=== PATIENT | female | born 1995 | race Caucasian/White ===

== ENCOUNTER 2025-03-02 17:02 | Outpatient (CLI) | payer BC, SELFPAY ==
--- NOTE | 2025-03-02 | XR_ITS ---
FINAL REPORT CLINICAL HISTORY: pain COMPARISON: None FINDINGS: RIGHT SHOULDER Three views demonstrate no acute fracture or dislocation. The visualized joint spaces are normally aligned. The soft tissues are unremarkable. IMPRESSION: No acute bony abnormality. Reviewed, Interpreted and Dictated by Dale Cox MD Transcribed by Ani Traylor Authenticated and [facility]
--- NOTE | 2025-03-02 | XR_ITS ---
FINAL REPORT CLINICAL HISTORY: pain COMPARISON: None FINDINGS: Two views of the thoracic spine were obtained. There is no acute fracture. There is no malalignment. The vertebrae are normal in height. The disc spaces are preserved. IMPRESSION: No acute process. Reviewed, Interpreted and Dictated by Dale Cox MD Transcribed by Ani Traylor Authenticated and [facility]
--- OUTSIDE RECORDS SUMMARY | 2025-03-02 17:15 | XMS_ITS | Clinical Summary ---
Author Organization [facility] Address [address] [place] [address] Care Team Providers Care Science Interpreter Name Role Phone Jennifer Lucero MD Primary Care Provider [phone] Allergies No known active allergies Medications FLUoxetine (PROzac) 20 MG capsule Take by mouth Daily. 11/30/2020 Active busPIRone (BUSPAR) 10 MG tablet Take 10 mg by mouth Every 8 (Eight) Hours As Needed. for anxiety 11/30/2020 Active Vit-Fe Fumarate-FA ( vitamin 27-0.8) 27-0.8 MG tablet tablet Take 1 tablet by mouth Daily. Active Active Problems Problem Noted Date Diagnosed Date Chlamydia infection during 01/21/2021 Assessment & Plan (01/21/2021 7:24 PM EDT): Test of cure 01/20 01/21/2021 care, subsequent , second trim ely 01/21/2021 8 weeks gestation of 12/23/2020 Tobacco use during , antepartum 021 Family History Medical History Relation Name Comments Hypertension Father Bipolar disorder Mother Ovarian cancer Mother Diabetes Paternal Aunt Diabetes Paternal Uncle Relation Name Status Comments Father Mother Paternal Aunt Paternal Uncle Social History Tobacco Use Types Packs/Day Years Used Date Smoking Tobacco: Every Day Cigarettes Smokeless Tobacco: Never Alcohol Use Standard Drinks/Week Comments Never 0 (1 standard drink = 0.6 oz pur e alcohol) Abuse Screen Answer Date Recorded Unsafe at Home or Work/School Not on file Feels Threatened by Someone? Not on file 03/2023 Does Anyone Keep You from Co ntacting Others or Doint Things Outside the Home? Not on file 04/22/2023 Physical Sign of Abuse Present Not on file 1 Housing Stability Answer Date Recorded Current Living Arrangements Not on file 03/2023 Potentially Unsafe Housing Conditions Not on kelli e 04/22/2023 Family and Community Support Answer Rio e Recorded Help with Day-to-Day Activities Not on file 04/22/2023 Lonely or Isolated Not on file 04/22/2023 Employment Answer Date Recorded Do you want help finding or keeping work or a manjinder b? Not on file 04/22/2023 Disabilities Answer Date Recorded Concentrating, Remembering, or Making Decisions Difficulty Not on file 04/22/2023 Doing Errands Independently Difficulty Not on fi le 04/22/2023 Education Answer Date Recorded Help with school or training? Not on file Preferred Language Not on file 04/22/2023 Comments No Sex and Gender Information Value Date Recorded Sex Assigned at Not on file Legal Sex Female 12:25 PM EDT Gender Identity Not on file Sexual Orientation Not on file Last Filed Vital Signs Vital Sign Reading Time Taken Comments Blood Pressure 110/72 01/20/2021 10:24 AM EDT Pulse - - Temperature - - Respiratory Rate - - Oxygen Saturation - - Inhaled Oxygen Concentration - - Weight 88 kg (194 lb) 01/20/2021 10:24 AM EDT Height - - Body Mass Index - - Plan of Treatment Health Maintenance Due Date Last Done Comments Annual Gynecologic Pelvic and Breast Exam 1997 TDAP/TD VACCINES (1 - Tdap) 2016 ANNUAL PHYSICAL 12/23/2020 COVID-19 Vaccine ( season) 2024 INFLUENZA VACCINE 04/14/2025 04/17/2013 HEPATITIS C SCREENING Completed 12/23/2020 CHLAMYDIA SCREENING Discontinued 01/20/2021, 12/23/2020 Pneumococcal Vaccine 0-49 Aged Out No longer eligible based on patient's age to complete this topic Procedures Procedure Name Priority Date/Time Associated Diagnosis Comments CHLAMYDIA TRACHOMATIS, NEISSERIA GONORRHOEAE, TRICHOMONAS VAGINALIS, PCR Routine 01/20/2021 11:00 AM EDT care, subsequent , second trimester OBSTETRIC PANEL Routine 12/23/2020 9:54 AM EDT 8 weeks gestation of from Last 3 Months or Most Recently Relevant to Health Maintenance Results * Chlamydia trachomatis, Neisseria gonorrhoeae, Trichomonas vaginalis, PCR - Swab, Cervix (111:00 AM EDT) Chlamydia trachomatis, GAGE Negative Negative [facility] Gonococcus by GAGE Negative Negative [facility] Trichomonas vaginosis Negative Negative [facility] Swab Specimen from cervix or vagina / Unknown 01/20/2021 11:00 AM EDT 01/20/2021 Comment:CX Narrative [facility] ([facility]) - 01/22/2021 5:07 PM EDT Performed at: [address] [place] [id number] Brass Burnisher: Fatou Flores MD, Phone: [phone] Patient Fasting: N Noemi Win MD MICROBIOLOGY - GENERA L ORDERABLES Final Result [facility] (AMBULATORY) [address] [place] [address], [facility] [address] [place] [address], * Obstetric Panel (12/23/2020 9:54 AM EDT) Hepatitis B Surface Ag Negative Negative [facility] Hep C Virus Ab <0.1 0.0 - 0.9 s/co ratio [facility] Comment: Negative: < 0.8 Indeterminate: 0.8 - 0.9 Positive: > 0.9 The CDC recommends that a positive HCV antibody result be followed up with a HCV Nucleic Acid Amplification test ([id number]). RPR Non Reactive Non Reactive [facility] Rubella Antibodies, IgG 1.95 Immune >0.99 index [facility] Comment: Non-immune <0.90 Equivocal 0.90 - 0.99 Immune >0.99 ABO Type O [facility] Rh Factor Positive [facility] Comment: Please note: Prior records for this patient's ABO / Rh type are not available for additional verification. Antibody Screen Negative Negative [facility] WBC 6.8 3.4 - 10.8 x10E3/uL [facility] RBC 4.01 3.77 - 5.28 x10E6/uL [facility] Hemoglobin 12.5 11.1 - 15.9 g/dL [facility] Hematocrit 38.1 34.0 - 46.6 % [facility] MCV 95 79 - 97 fL [facility] MCH 31.2 26.6 - 33.0 pg [facility] MCHC 32.8 31.5 - 35.7 g/dL [facility] RDW 13.7 11.7 - 15.4 % [facility] Platelets 215 150 - 450 x10E3/uL [facility] Neutrophil Rel % 68 Not Estab. % [facility] Lymphocyte Rel % 21 Not Estab. % [facility] Monocyte Rel % 7 Not Estab. % [facility] Eosinophil Rel % 3 Not Estab. % [facility] Basophil Rel % 1 Not Estab. % [facility] Neutrophils Absolute 4.7 1.4 - 7.0 x10E3/uL [facility] Lymphocytes Absolute 1.4 0.7 - 3.1 x10E3/uL [facility] Monocytes Absolute 0.5 0.1 - 0.9 x10E3/uL [facility] Eosinophils Absolute 0.2 0.0 - 0.4 x10E3/uL [facility] Basophils Absolute 0.0 0.0 - 0.2 x10E3/uL [facility] Immature Granulocyte Rel % 0 Not Estab. % [facility] Immature Grans Absolute 0.0 0.0 - 0.1 x10E3/uL [facility] Blood 12/23/2020 9:54 AM EDT 12/24/2020 Narrative [facility] ([facility]) - 12/30/2020 2:35 PM EDT Performed at: 01 - [facility] [address] [id number] Brass Burnisher: Tj Adams PhD, Phone: [phone] Patient Fasting: N us Noemi Win MD LAB BLOOD ORDERABLES Final Result [facility] ([facility]) [address] [place] [address], [place] [phone] [facility] [address] [place] [address], from Last 3 Months or Most Recently Relevant to Health Maintenance Insurance [facility] MEDICAID Care Teams Science Interpreter Relationship Specialty Start Date End Date Jennifer Lucero MD [address] [place] [address] PCP - General Family Medicine 12/20/20
--- OUTSIDE RECORDS SUMMARY | 2025-03-02 17:15 | XMS_ITS | Encounter Summary ---
Author Organization Healthcare Address [address] [place] [address] Care Team Providers Care Articulation Officer Name Role Phone Jennifer Lucero MD Primary Care Provider [phone] Encounter Details Date Type Department Care Team ([facility] Contact Info) Description 11/23/2021 Outside Procedure External Location [address] [place] [address] Jennifer Lucero MD [address] [place] [address] Social History Tobacco Use Types Packs/Day Years Used Date Smoking Tobacco: Every Day Cigarettes 0.5 17.6 Started: 2007 Smokeless Tobacco: Never Alcohol Use Standard Drinks/Week Comments Not Currently 0 (1 standard drink = 0.6 oz pur e alcohol) PHQ-2 Answer Date Recorded Patient Health Questionnaire-2 Score 6 05/04/2021 [place] Depression Scale Answer Date Recorded [place] Depression Scale Total 0 08/24/2021 The thought of harming myself has occurred to me . Never 08/24/2021 Comments No Sex and Gender Information Value Date Recorded Sex Assigned at Not on file Legal Sex Female 6:43 PM EDT Gender Identity Not on file Sexual Orientation Not on file COVID-19 Exposure Response Date Recorded In the last 10 days, have yo u been in contact with someone who was confirmed or suspected to have Coronavirus/COVID-19? No / Unsure 11/23/2021 9:37 AM EDT documented as of this encounter Plan of Treatment Upcoming Encounters Date Type Department Care Team (Late st Contact Info) Description 03/03/2025 9:00 AM EDT Office Visit [facility] [address] [place] [address] Mary Hernandez, TECHNICAL RESEARCH SCIENTIST [address] [place] [address] documented as of this encounter Procedures Procedure Name Priority Date/Time Associated Diagnosis Comments XR THORACIC SPINE 2 VIEWS 11/23/2021 10:44 AM EDT documented in this encounter Results * XR Thoracic Spine 2 Views (11/23/2021 10:44 AM EDT) Anatomical Region Laterality Modality Spine, T-spine Radiographic Tamanna ging 11/23/2021 10:4 4 AM EDT Narrative 11/23/2021 1:15 PM EDT [address] [address] Name: DAVIDSON FRANKLIN Exam Date: 11/23/2021 : 1995 Age 26 Gender: F Physician: Jennifer Lucero Facility: [facility] Facility HSV: Outpatient Exam: THORACIC SPINE 2V THORACIC SPINE HISTORY: Back pain FINDINGS: 2 views of the thoracic spine demonstrate no evidence of fracture. There is normal alignment. IMPRESSION: No acute bony abnormality. Films reviewed , interpreted and dictated by Dr. González Alejandra. Transcribed by Jhonathan Pennington PA-C. Dictated By: González Lara Transcribed By: González Alejandra Transcribed On: 11/23/2021 1:02 PM Electronically signed by: González Lara 11/23/2021 Thank you for referring DAVIDSON FRANKLIN to [facility]. Legally authenticated by FANY LUA 2021-11-23 13:02:41 Procedure Note Provider, [facility] - 11/23/2021 [address] [place] [address] Name: DAVIDSON FRANKLIN Exam Date: 11/23/2021 : 1995 Age 26 Gender: F Physician: Jennifer Lucero Facility: [facility] Facility HSV: Outpatient Exam: THORACIC SPINE 2V THORACIC SPINE HISTORY: Back pain FINDINGS: 2 views of the thoracic spine demonstrate no evidence offracture. There is normal alignment. IMPRESSION: No acute bony abnormality. Films reviewed , interpreted and dictated by Dr. González Alejandra. Transcribed by Jhonathan Pennington PA-C. Dictated By: González Lara Transcribed By: González Alejandra Transcribed On: 11/23/2021 1:02 PM Electronically signed by: González Lara 11/23/2021 Thank you for referring DAVIDSON FRANKLIN to [facility]. Legally authenticated by FANY LUA 2021-11-23 13:02:41 us Jennifer Lucero MD IMG XR PROCEDURES Final Resul t documented in this encounter Visit Diagnoses Not on filedocumented in this encounter Additional Health Concerns Assessment Noted Time PHQ-9 Depression Total Score: 21 05/04/ 021 11:50 AM EDT documented as of this encounter Care Teams Articulation Officer Relationship Specialty Start Date End Date Jennifer Lucero MD [address] [place] [address] PCP - General 11/25/20 documented as of this encounter
--- OUTSIDE RECORDS SUMMARY | 2025-03-02 17:15 | XMS_ITS | Encounter Summary ---
Author Organization Healthcare Address [address] [place] [address] Care Team Providers Care Moulder Operator Name Role Phone Jennifer Lucero MD Primary Care Provider [phone] Encounter Details Date Type Department Care Team (Late Contact Info) Description 01/13/2023 Outside Procedure External Location [address] [place] [address] Provider, [facility] Social History Tobacco Use Types Packs/Day Years Used Date Smoking Tobacco: Every Day Cigarettes 0.5 17.6 Started: 2007 Smokeless Tobacco: Never Alcohol Use Standard Drinks/Week Comments Not Currently 0 (1 standard drink = 0.6 oz pur e alcohol) PHQ-2 Answer Date Recorded Patient Health Questionnaire-2 Score 0 10/22/2022 [place] Depression Scale Answer Date Recorded [place] Depression Scale Total 0 08/24/2021 The thought of harming myself has occurred to me . Never 08/24/2021 Comments No Sex and Gender Information Value Date Recorded Sex Assigned at Not on file Legal Sex Female 6:43 PM EDT Gender Identity Not on file Sexual Orientation Not on file documented as of this encounter Plan of Treatment Upcoming Encounters Date Type Department Care Team (Late Contact Info) Description 03/03/2025 9:00 AM EDT Office Visit [facility] [address] [place] [address] Mary Hernandez APRN [address] [place] [address] documented as of this encounter Procedures Procedure Name Priority Date/Time Associated Diagnosis Comments CT HEAD WO IV CONTRAST 01/13/2023 11:46 AM EDT documented in this encounter Results * CT Head wo IV Contrast (01/13/2023 11:46 AM EDT) Anatomical Region Laterality Modality Head Computed Tomogra phy 01/13/2023 11:4 6 AM EDT Narrative 01/13/2023 1:45 [place] [address] Name: DAVIDSON FRANKLIN Exam Date: 01/13/2023 : 1995 Age 27 Gender: F Physician: CRUZ NGUYEN Facility: [facility] Facility HSV: Outpatient Exam: CT BRAIN W/O FINAL REPORT TECHNIQUE: Axial CT images were performed through the brain. Coronal reformatted images were submitted. This study was performed with techniques to keep radiation doses as low as reasonably achievable (ALARA). Individualized dose reduction techniques using automated exposure control or adjustment of mA and/or kV according to the patient's size were employed. CLINICAL HISTORY: Headache FINDINGS: There is no acute hemorrhage, mass effect, or midline shift. Ventricles are normal in size and contour. There is no evidence of fracture. There is mucosal thickening and fluid levels in the paranasal sinuses. Correlate for sinusitis. IMPRESSION: No acute hemorrhage, mass effect, or midline shift. Mucosal thickening and fluid levels in the paranasal sinuses. Correlate for sinusitis. Reviewed, Interpreted and Dictated by Calixto Wilkinson DO Transcribed by Pilar Lau Authenticated and [facility] Dictated By: Calixto Wilkinson DO Transcribed By: Transcribed On: 01/13/2023 1:33 PM Electronically signed by: Calixto Wilkinson DO 01/13/2023 Thank you for referring JASPREDAVIDSON PYLE to [facility]. Legally authenticated by POPE CALIXTO Gracia 2023-01-13 13:33:44 Procedure Note Provider, [facility] - 01/13/2023 [address] [place] [address] Name: DAVIDSON FRANKLIN Exam Date: 01/13/2023 : 1995 Age 27 Gender: F Physician: CRUZ NGUYEN Facility: [facility] Facility HSV: Outpatient Exam: CT BRAIN W/O FINAL REPORT TECHNIQUE: Axial CT images were performed through the brain. Coronal reformatted images were submitted. This study was performed with techniques to keep radiation doses as low as reasonably achievable (ALARA). Individualized dose reduction techniques using automated exposure control or adjustment of mA and/or kV according to the patient's size were employed. CLINICAL HISTORY: Headache FINDINGS: There is no acute hemorrhage, mass effect, or midline shift. Ventricles are normal in size and contour. There is no evidence of fracture. There is mucosal thickening and fluid levels in the paranasal sinuses. Correlate for sinusitis. IMPRESSION: No acute hemorrhage, mass effect, or midline shift. Mucosal thickening and fluid levels in the paranasal sinuses. Correlate for sinusitis. Reviewed, Interpreted and Dictated by Calixto Wilkinson DO Transcribed by Pilar Lau Authenticated and [facility] Dictated By: Calixto Wilkinson DO Transcribed By: Transcribed On: 01/13/2023 1:33 PM Electronically signed by: Calixto Wilkinson DO 01/13/2023 Thank you for referring DAVIDSON FRANKLIN to [facility]. Legally authenticated by POPE CALIXTO Graica 2023-01-13 13:33:44 Generic [place] Provider IMG CT PROCEDURES Fi nal Result documented in this encounter Visit Diagnoses Not on filedocumented in this encounter Additional Health Concerns Assessment Noted Time PHQ-9 Depression Total Score: 20 022 9:52 AM EDT A fall risk assessment has been complete d for the patient 03/26/2022 4:12 PM EDT A Body Mass Index follow-up plan has been documented for the patient 10/22/2022 9:51 AM EDT documented as of this encounter Care Teams Moulder Operator Relationship Specialty Start Date End Date Jennifer Lucero MD [address] [place] [address] PCP - General 11/25/20 documented as of this encounter
--- OUTSIDE RECORDS SUMMARY | 2025-03-02 17:15 | XMS_ITS | Encounter Summary ---
Author Organization Healthcare Address [address] [place] [address] Care Team Providers Care [facility] Name Role Phone Jennifer Lucero MD Primary Care Provider [phone] Reason for Visit * Reason Comments Med Refill Encounter Details Date Type Department Care Team (Late st Contact Info) Description 09/24/2024 Refill [facility] [address] [place] [address] Jennifer Lucero MD [address] [place] [address] Fibromyalgia Social History Tobacco Use Types Packs/Day Years Used Date Smoking Tobacco: Every Day Cigarettes 0.5 17.6 Started: 2007 Smokeless Tobacco: Never Alcohol Use Standard Drinks/Week Comments Not Currently 0 (1 standard drink = 0.6 oz pur e alcohol) Humiliation, Afraid, Rape, and Kick questionnair e Answer Date Recorded Within the last year, have y ou been afraid of your partner or ex-partner? No 03/13/2024 Within the last year, have y ou been humiliated or emotionally abused in other ways by your partner or ex-partner? No Within the last year, have y ou been kicked, hit, slapped, or otherwise physically hurt by your partner or ex-partner? No 03/13/2024 Within the last year, have y ou been raped or forced to have any kind of sexual activity by your partner or ex-partner? No 03/13/2024 PHQ-2 Answer Date Recorded Patient Health Questionnaire-2 Score 0 03/13/2024 Hunger Vital Sign Answer Date Recorded Within the past 12 months, y ou worried that your food would run out before you got the money to buy more. Never true 03/13/20 24 Within the past 12 months, t he food you bought just didn't last and you didn't have money to get more. Never true 03/13/2024 PRAPARE - Transportation Answer Date Re corded In the past 12 months, has l ack of transportation kept you from medical appointments or from getting medications? No 02/14 In the past 12 months, has l ack of transportation kept you from meetings, work, or from getting things needed for daily living? No 03/13/2024 Housing Stability Vital Sign Answer Rio e Recorded In the last 12 months, was t here a time when you were not able to pay the mortgage or rent on time? No 03/13/2024 Number of Places Lived in the Last Year Not on f ile 03/13/2024 In the last 12 months, was t here a time when you did not have a steady place to sleep or slept in a long-term (including now)? No 03/13/2024 [place] Depression Scale Answer Date Recorded [place] Depression Scale Total 0 08/24/2021 The thought of harming myself has occurred to me . Never 08/24/2021 Utilities Answer Date Recorded In the past 12 months has th e electric, gas, oil, or water company threatened to shut off services in your home? No 03/13/2024 PHQ-2A Answer Date Recorded Patient Health Questionnaire-2 Score 0 01/28/2023 Comments No Sex and Gender Information Value Date Recorded Sex Assigned at Not on file Legal Sex Female 6:43 PM EDT Gender Identity Not on file Sexual Orientation Not on file documented as of this encounter Miscellaneous Notes * Telephone Encounter - Jennifer Lucero MD - 09/25/2024 11:13 AM EDT Controlled medication, needs appointment documented in this encounter Plan of Treatment Upcoming Encounters Date Type Department Care Team (Late st Contact Info) Description 03/03/2025 9:00 AM EDT Office Visit [facility] [address] [place] [address] Mary Hernandez APRN [address] [place] [address] documented as of this encounter Visit Diagnoses Diagnosis Fibromyalgia Unspecified myalgia and myositis documented in this encounter Additional Health Concerns Assessment Noted Time PHQ-9 Depression Total Score: 022 9:52 AM EDT A fall risk assessment has been complete d for the patient 03/26/2022 4:12 PM EDT A Body Mass Index follow-up plan has been documented for the patient 03/13/2024 11:19 AM EDT documented as of this encounter Care Teams Hospital Cna Relationship Specialty Start Date End Date Jennifer Lucero MD [address] [place] [address] PCP - General 11/25/20 documented as of this encounter
--- OUTSIDE RECORDS SUMMARY | 2025-03-02 17:15 | XMS_ITS | Clinical Summary ---
Author Organization [facility] Address [address] [place] [address] Care Team Providers Care Retail Buyer Name Role Phone Jennifer Lucero MD Primary Care Provider [phone] Allergies No known active allergies Medications busPIRone (Buspar) 10 MG tabletIndicatio ns:Anxiety and depression Take 1 tablet (10 mg) by mouth if needed (anxiety). 30 tablet 2 08/07/2023 Active gabapentin (Neurontin) 300 MG capsuleIndicati ons:Fibromyalgi a Take 1 capsule by mouth in the morning and 1 capsule in the evening and 1 capsule before bedtime. 270 capsule 1 10/23/2024 Active lamoTRIgine (LaMICtal) 100 MG tabletIndicatio ns:Anxiety and depression Take 1 tablet by mouth daily. 90 tablet 2 10/23/2024 Active buPROPion XL (Wellbutrin XL) 150 MG 24 hr tabletIndicatio ns:Anxiety and depression Take 1 tablet by mouth every morning. Do not crush, chew, or split. 90 tablet 1 10/23/2024 Active Active Problems Problem Noted Date Diagnosed Date Fibromyalgia 03/26/2022 Anxiety and depression 08/03/2020 Hypothyroidism 10/09/2014 Immunizations Immunization Administration Dates Next Due DTaP 03/17/2002, 9,1997,08/25 Hep B, Adolescent or Pediatric 1997 Hib (PRP-OMP) 1997,1997 Hib / Hep B 07/04/1998 IPV 08/11/2001,1997,1997 Influenza, seasonal, injectable 04/17/2013,05/06 MMR 08/11/2001,04/10/1999 Meningococcal MCV4O 12/07/2008 OPV Bivalent - Non-US 07/04/1998 Pneumococcal conjugate vacci ne, 10 valent 07/02/2000 Tdap 10/23/2024,12/07/2008 Varicella 12/07/2008 Family History Medical History Relation Name Comments Migraines Other Relation Name Status Comments Other Social History Tobacco Use Types Packs/Day Years Used Date Smoking Tobacco: Every Day Cigarettes 0.5 17.6 Started: 2007 Passive Smoke Exposure: Never Smokeless Tobacco: Never Tobacco Cessation:Ready to Q uit: Not Asked; Counseling Given: Not Answered Alcohol Use Standard Drinks/Week Comments Not Currently 0 (1 standard drink = 0.6 oz pur e alcohol) Humiliation, Afraid, Rape, and Kick questionnair e Answer Date Recorded Within the last year, have y ou been afraid of your partner or ex-partner? No 10/30/2024 Within the last year, have y ou been humiliated or emotionally abused in other ways by your partner or ex-partner? No Within the last year, have y ou been kicked, hit, slapped, or otherwise physically hurt by your partner or ex-partner? No 10/30/2024 Within the last year, have y ou been raped or forced to have any kind of sexual activity by your partner or ex-partner? No 10/30/2024 PHQ-2 Answer Date Recorded Patient Health Questionnaire-2 Score 0 10/30/2024 Hunger Vital Sign Answer Date Recorded Within the past 12 months, y ou worried that your food would run out before you got the money to buy more. Never true 10/31/19 Within the past 12 months, t he food you bought just didn't last and you didn't have money to get more. Never true 10/30/2024 PRAPARE - Transportation Answer Date Re corded In the past 12 months, has l ack of transportation kept you from medical appointments or from getting medications? No 10/13 In the past 12 months, has l ack of transportation kept you from meetings, work, or from getting things needed for daily living? No 10/30/2024 Housing Stability Vital Sign Answer [place] [...] place to sleep or slept in a usp (including now)? No 03/13/2024 [place] Depression Scale Answer Date Recorded [place] Depression Scale Total 0 08/24/2021 The thought of harming myself has occurred to me . Never 08/24/2021 PHQ-9 Answer Date Recorded Patient Health Questionnaire-9 Score 15 10/30/2024 Housing Stability Vital Sign Answer [place] Recorded In the last 12 months, was t here a time when you were not able to pay the mortgage or rent on time? No 10/30/2024 In the past 12 months, how m any times have you moved where you were living? 0 10/30/2024 At any time in the past 12 m [facility], were you homeless or living in a usp (including now)? No 10/30/2024 Utilities Answer Date Recorded In the past 12 months has e electric, gas, oil, or water company threatened to shut off services in your home? No 10/30/2024 PHQ-2A Answer Date Recorded Patient Health Questionnaire-2 Score 0 01/28/2023 Comments No Sex and Gender Information Value Date Recorded Sex Assigned at Not on file Legal Sex Female 6:43 PM EDT Gender Identity Not on file Sexual Orientation Not on file Last Filed Vital Signs Vital Sign Reading Time Taken Comments Blood Pressure 108/72 10/30/2024 1:32 PM EDT Pulse 70 10/30/2024 1:32 PM EDT Temperature 37 C (98.6 F) 10/30/2024 1:32 PM EDT Respiratory Rate 14 10/30/2024 1:32 PM EDT Oxygen Saturation 98% 10/30/2024 1:32 PM EDT Inhaled Oxygen Concentration - - Weight 88 kg (194 lb 0.1 oz) 10/30/2024 1:32 PM EDT Height 170.2 cm (5' 7 ) 10/30/2024 1:32 PM EDT Body Mass Index 30.39 10/30/2024 1:32 PM EDT Plan of Treatment Upcoming Encounters Date Type Department Care Team (Late st Contact Info) Description 03/03/2025 9:00 AM EDT Office Visit [facility] [address] [place] [phone] Mary Hernandez, SOCIAL WORKER CLINICAL [address] [place] [place] [phone] Health Maintenance Due Date Last Done Comments [facility]-/Child/Adol SDOH Screenings 1997 [facility]-Hepatitis B Vaccines (3 of 3 - 3-dose series) 08/29/1998 07/04/1998, 1997 [facility]-Varicella Vaccines (2 of 2 - 2-dose childhood series) 03/01/2009 12/07/2008 [facility]-Pneumococcal Vaccine: Pediatrics (0 to 5 Years) and At-Risk Patients (6 to 49 Years) (1 of 2 - PCV) 2016 [facility]-Pap Smear 2018 [id number] Vaccine (1 - 2023- season) 2024 HPV Vaccines (1 - 3-dose SCDM series) 2024 [facility]-Influenza Vaccine (#1) 2025 04/17/2013, [facility]- SDOH Screenings 05/01/2025 [facility]-Adult SDOH Screenings 05/01/2025 10/30/2024 [facility]-Depression Screening 10/30/2025 025, 10/30/2024, 08/24/2021 [facility]-DTaP,Tdap,and Td Vaccines (7 - Td or Tdap) 10/23/2034 10/23/2024, 12/07/2008, 03/17/2002, Additional history exists [facility]-Zoster Vaccines (1 of 2) 2047 12/07/2008 [facility]-HIB Vaccines Completed 07/04/1998, , 1997 [facility]-IPV Vaccines Completed 08/11/2001, , 1997, Additional history exists [facility]-HIV Screening Completed 12/23/2020 [facility]-Hepatitis C Screening Completed 12/23/2020 [facility]-Obesity Intervention Completed 025, 10/23/2024, 03/13/2024, Additional history exists [facility]-Hepatitis A Vaccines Aged Out No longer eligible based on patient's age to complete this topic [facility]-Rotavirus Vaccines Aged Out No lo nger eligible based on patient's age to complete this topic Procedures Procedure Name Priority Date/Time Associated Diagnosis Comments HEPATITIS C ANTIBODY W/REFLEX TO HCV QUANT PCR Routine 12/23/2020 HIV 1/2 ANTIBODY/ANTIGEN SCREEN WITH REFLEX TO HIV I/II DIFFERENTIATION Routine 12/23/2020 from Last 3 Months or Most Recently Relevant to Health Maintenance Results * HIV 1 & 2 Antibody/Antigen Screen (12/23/2020) External HIV 1/2 Ab/Ag Negative Blood Venous blood specimen / Unknown [facility] Provider LAB BLOOD ORDERABLES Final R esult * Hepatitis C Antibody (12/23/2020) External Hepatitis C Antibody (HCV Ab) Negative Blood Venous blood specimen / Unknown [facility] Provider LAB BLOOD ORDERABLES Final R esult from Last 3 Months or Most Recently Relevant to Health Maintenance Insurance [employer] Care Teams Retail Buyer Relationship Specialty Start Date End Date Jennifer Lucero MD [address] [place] [phone] PCP - General 11/25/20
== END 2025-03-02 23:59 | disposition home or self-care (01) ==
PROVIDERS: PCP Family Medicine; Visit Provider Registered Nurse
DX: M25.511 Pain in right shoulder (principal); M54.6 Pain in thoracic spine
CPT/HCPCS: 72070; 73030